=== PATIENT | male | born 1995 | race Caucasian/White ===

== ENCOUNTER 2017-07-06 04:41 | Emergency (ER) | payer BC ==
--- NOTE | 2017-07-06 04:46 | EDPHY ---
H & P HPI/ROS: HPI CHIEF COMPLAINT: Right eyebrow laceration, head trauma, syncope HISTORY OF PRESENT ILLNESS: This patient very pleasant 21-year-old male, he is visiting his friends at [facility] from [place], he just arrived here yesterday. States he had 3 beers around 11 o'clock last night 20 mg of edible marijuana. States he woke up around 4:30 a.m. approximately 45 minutes ago to urinate. Went to go to the bathroom and he passed out. He had head strike against the ground. Positive LOC. Sustained a right eyebrow laceration. He does complain of a headache. Denies any other areas of pain. Denies chest pain or shortness of breath. Past Medical History: No medical history Past Surgical History: No surgical history Social History: Endorses alcohol this evening and edible marijuana visiting from out of town Family History: Noncontributory ROS REVIEW OF SYSTEMS: A comprehensive 10 point review of systems is otherwise negative aside from elements mentioned in the history of present illness. Exam Constitutional appears nontoxic triage nursing summary reviewed, vital signs reviewed, awake/alert. Eyes normal conjunctivae and sclera, EOMI, PERRLA. HENT Head/neck: Shows a right eyebrow laceration 6 cm in horizontal length, otherwise atraumatic head and neck exam., moist mucus membranes, no epistaxis, neck supple/ no meningismus, no raccoon eyes. Respiratory clear to auscultation bilaterally, normal breath sounds, no respiratory distress, no wheezing. Cardiovascular rate normal, regular rhythm, no murmur, no edema, distal pulses normal. Gastrointestinal soft, non-tender, no rebound, no guarding, normal bowel sounds, no distension, no pulsatile mass. Genitourinary no CVA tenderness. Musculoskeletal no midline vertebral tenderness, full range of motion, no calf swelling, no tenderness of extremities, no meningismus, good pulses, neurovascularly intact. Skin pink, warm, & dry, no rash, skin atraumatic. Neurologic awake, alert and oriented x 3, AAOx3, moves all 4 extremities equally, motor intact, sensory intact, CN II-XII intact, normal cerebellar, normal vision, normal speech. Psychiatric normal mood/affect. Heme/Lymph/Immune no lymphadenopathy. Differential Diagnosis: Includes but is not limited to in a particular order, dehydration, electrolyte disturbance, vasovagal syncope, orthostatic syncope due to alcohol intoxication and edible marijuana, doubt cardiac arrhythmia, closed head injury, intracranial bleed, skull fracture Medical Decision Making: Plan for this patient EKG, basic blood work, IV fluid bolus, troponin, CT head without contrast for trauma. Repair his head laceration. Re-evaluation: Laceration Repair Procedure: Verbal Consent was obtained, Under sterile conditions, The patient had lidocaine with epinephrine used approximately 5ccs to local anesthetize the Right eyebrow 6cm Laceration. The wound was copiously irrigated with sterile fluid, the wound was explored for foreign bodies there were none visualized, the wound was explored with a sterile glove to the base. There are no deep structures involved, including no arterial injury. SIX 6.O PROLENE interrupted Sutures were placed in this patient's laceration. He had good close approximation of the wound edges. He Tolerated this well. EKG interpretation by me on record in [employer] system. Impression time of EKG 5:19 a.m., sinus rhythm rate of 55 no acute ischemic changes appreciated. No prolonged intervals. No signs of WPW or Brugada. 0544AM: CT scan of the head without IV contrast for trauma The results of the study are negative for acute bleed or skull fracture. The study was read by Dr. Meyers. I viewed the images myself on the PACS system. 0643AM: CT head negative for anything acute. EKG normal. Labs normal. Patient feels better. NAd. IV Fluids given. Vital signs stable patient ambulated without difficulty. Ready go home. Understands have sutures out 7 days. Return emergency room there is any worsening symptoms questions or concerns. Source: Patient Constitutional: Initial Vital Signs Temperature (C) 36.4 C 07/06/17 04:44 Heart Rate 53 L 07/06/17 04:44 Respiratory Rate 14 07/06/17 04:44 Blood Pressure 98/45 L 07/06/17 04:44 O2 Sat (%) 99 07/06/17 04:44 O2 Delivery Mode Room Air Allergies/Adverse Reactions: No Known Allergies Allergy (Unverified 07/06/17 04:51) Home Medications: Medication Instructions Recorded Adderall 30 mg Tablet 07/06/17 Medical Decision Making - Data Points Laboratory Results: Laboratory Results 07/06/17 05:30 07/06/17 05:30 07/06/17 07/06/17 05:30 05:30 WBC 4.37 10^3/uL 10^3/uL (3.80-9.50) RBC 4.33 10^6/uL L 10^6/uL (4.40-6.38) Hgb 13.0 g/dL L g/dL (13.7-17.5) Hct 38.6 % L % (40.0-51.0) MCV 89.1 fL fL (81.5-99.8) MCH 30.0 pg pg (27.9-34.1) MCHC 33.7 g/dL g/dL (32.4-36.7) RDW 11.8 % % (11.5-15.2) Plt Count 209 10^3/uL 10^3/uL (150-400) MPV 10.9 fL fL (8.7-11.7) Neut % (Auto) 41.4 % % (39.3-74.2) Lymph % (Auto) 47.1 % H % (15.0-45.0) [place] % (Auto) 9.2 % % (4.5-13.0) Eos % (Auto) 1.6 % % (0.6-7.6) Baso % (Auto) 0.5 % % (0.3-1.7) Nucleat RBC Rel Count 0.0 % % (0.0-0.2) Absolute Neuts (auto) 1.81 10^3/uL 10^3/uL (1.70-6.50) Absolute Lymphs (auto) 2.06 10^3/uL 10^3/uL (1.00-3.00) Absolute Monos (auto) 0.40 10^3/uL 10^3/uL (0.30-0.80) Absolute Eos (auto) 0.07 10^3/uL 10^3/uL (0.03-0.40) Absolute Basos (auto) 0.02 10^3/uL 10^3/uL (0.02-0.10) Absolute Nucleated RBC 0.00 10^3/uL 10^3/uL (0-0.01) Immature Gran % 0.2 % % (0.0-1.1) Immature Gran # 0.01 10^3/uL 10^3/uL (0.00-0.10) Sodium 140 mEq/L mEq/L (134-144) Potassium 4.4 mEq/L mEq/L (3.5-5.2) Chloride 103 mEq/L mEq/L (97-110) Carbon Dioxide 25 mEq/l mEq/l (22-31) Anion Gap 12 mEq/L mEq/L (8-16) BUN 15 mg/dL mg/dL (7-23) Creatinine 0.9 mg/dL mg/dL (0.7-1.3) Estimated GFR > 60 Glucose 97 mg/dL mg/dL (70-100) Calcium 9.2 mg/dL mg/dL (8.5-10.4) Troponin I < 0.012 ng/mL ng/mL (0.000-0.034) Medications Given: Discontinued Medications Sodium Chloride (Ns) 1,000 mls @ 0 mls/hr IV ONCE ONE PRN Reason: Wide Open Stop: 07/06/17 05:13 Last Admin: 07/06/17 05:40 Dose: 1,000 mls Departure - Departure Disposition: Home, Routine, Self-Care Clinical Impression: Laceration Syncope Qualifiers: Syncope type: unspecified Qualified Code(s): R55 - Syncope and collapse Head injury Qualifiers: Encounter type: initial encounter Qualified Code(s): S09.90XA - Unspecified injury of head, initial encounter Condition: Good Instructions: Care For Your Stitches (ED), Laceration (ED), Syncope (ED), Concussion (ED), Head Injury (ED) Additional Instructions: 1.Drink lots of fluids stay well-hydrated. 2. Refrain from doing edible marijuana. 3. Return emergency room if you have worsening symptoms questions or concerns or you pass out again. 4. Your sutures need to be removed in 7 days. Referrals: MIGUEL ANGEL HILLMAN [Other] - As per Instructions
[2017-07-06] MEDS ORDERED: NS 1,000 ML IV ONE (05:12)
--- NOTE | 2017-07-06 05:22 | CPEKG ---
Heart Rate: 55 RR Interval: 1091 P-R Interval: 192 QRSD Interval: 78 QT Interval: 432 QTC Interval: 414 P [place]: 17 QRS [place]: 46 T Wave [place]: 48 EKG Severity - NORMAL ECG - EKG Impression: SINUS RHYTHM Electronically Signed By: Esteban Heath 06-Jul-2017 06:56:42
[2017-07-06 05:47] LABS: % IMMATURE GRANULYOCYTES 0.2 % (0.0-1.1); ABSOLUTE IMMATURE GRANULOCYTES 0.01 10^3/uL (0.00-0.10); ADD DIFF? NO; ADD MORPH? NO; ADD SCAN? NO; ATYPICAL LYMPHOCYTE FLAG 20 (0-99); FRAGMENT RBC FLAG 0 (0-99); HEMATOCRIT 38.6 % (40.0-51.0); LEFT SHIFT FLG 0 (0-99); LIPEMIA HEMOLYSIS FLAG 80 (0-99); MEAN CELL HEMOGLOBIN CONCENTR. 33.7 g/dL (32.4-36.7); MEAN CELL VOLUME 89.1 fL (81.5-99.8); MEAN PLATELET VOLUME 10.9 fL (8.7-11.7); PLATELET CLUMPS FLAG 0 (0-99); PLATELET COUNT 209 10^3/uL (150-400); RED BLOOD CELL COUNT 4.33 10^6/uL (4.40-6.38); RED CELL DISTRIBUTION WIDTH 11.8 % (11.5-15.2)
[2017-07-06 06:06] LABS: ANION GAP 12 mEq/L (8-16); CALCIUM 9.2 mg/dL (8.5-10.4); CARBON DIOXIDE 25 mEq/l (22-31); CHLORIDE 103 mEq/L (97-110); CREATININE 0.9 mg/dL (0.7-1.3); GLOMERULAR FILTRATION RATE > 60; GLUCOSE 97 mg/dL (70-100); POTASSIUM 4.4 mEq/L (3.5-5.2); SODIUM 140 mEq/L (134-144)
[2017-07-06 06:17] LABS: TROPONIN I < 0.012 ng/mL (0.000-0.034)
[2017-07-06 06:42] VITALS: BP 106/61; PULSE 65; RESP 20; TEMP 98.1; O2SAT 95
== END 2017-07-06 06:48 | disposition home or self-care (01) ==
PROC: 08QNXZZ Repair Right Upper Eyelid, External Approach (ICD-10-PCS; principal; 2017-07-06)
DX: S01.111A Laceration without foreign body of right eyelid and periocular area, initial encounter (principal); S09.90XA Unspecified injury of head, initial encounter; R55 Syncope and collapse; W22.8XXA Striking against or struck by other objects, initial encounter; Y99.8 Other external cause status; Y93.89 Activity, other specified